=== PATIENT | female | born 1970 | race Two or more races ===

== ENCOUNTER 2017-08-25 22:18 | Emergency (ER) | payer BC, MEDICAID ==
[~2017-08-25] VITALS: Ht 162.6 cm; Wt 88.9 kg
[~2017-08-25 22:18] MED LIST: DICY10CA55 PO; LEVO25TA6 PO; LOR05T PO; METH500T6 PO; PROM25TA5 PO
[2017-08-25 23:05] LABS: Basophils # (auto) 0.1 uL; Basophils % (auto) 0.6 % (0.0-2.0); Eosinophils # (auto) 0.2 uL; Hematocrit 42.6 % (36.0-46.0); Hemoglobin 13.9 g/dL (12.2-16.2); Lymphocytes % (auto) 27.1 % (10.0-50.0); Mean Corpuscular Hemoglobin 28.9 pg (28.0-32.0); Mean Corpuscular Hgb Conc. 32.7 g/dL (32.0-36.0); Mean Corpuscular Volume 88.4 fL (80.0-100.0); Mean Platelet Volume 8.1 fL (6.9-10.8); Monocytes # (auto) 0.9 uL; Monocytes % (auto) 8.1 % (0.0-12.0); Neutrophils # (auto) 6.8 uL; Neutrophils % (auto) 62.2 % (37.0-80.0); Nucleated Red Blood Cells % 0.1 %; Platelet Count (auto) 323 10^3/uL (140-450); Red Cell Distribution Width 13.8 % (11.8-14.3); White Blood Cell 10.9 10^3/uL (4.4-10.8)
[2017-08-25 23:08] LABS: Urine Bilirubin Negative (Negative); Urine Blood Negative /uL (Negative); Urine Color Yellow (Yellow); Urine Glucose Normal (Normal); Urine Ketone Negative (Negative); Urine Mucus FEW (None Seen); Urine Nitrite Negative (Negative); Urine RBC 1 /hpf (0 - 4); Urine Squamous Epithelial Cell FEW /hpf (<5); Urine Urobilinogen Normal (Negative); Urine pH 5.5 (5.0-8.0)
[2017-08-25 23:35] LABS: Albumin 3.8 g/dL (3.4-5.0); Calcium 8.9 mg/dL (8.5-10.1); Potassium 4.4 mmol/L (3.5-5.1)
[2017-08-25 23:37] LABS: Bilirubin, Total 0.1 mg/dL (0.2-1.0); Total Protein 7.7 g/dL (6.4-8.2)
[2017-08-26 01:58] VITALS: BP 126/80
== END 2017-08-26 02:44 | disposition left against medical advice (07) ==
LOC: ER 22:27
DX: R10.9 Unspecified abdominal pain (principal); Z53.21 Procedure and treatment not carried out due to patient leaving prior to being seen by health care provider
CPT/HCPCS: 36415; 74176; 80053; 81001; 81025; 85025

== ENCOUNTER 2018-05-03 12:37 | Emergency (ER) | payer OTHER, MEDICAID ==
[~2018-05-03] VITALS: Ht 162.6 cm; Wt 88.9 kg
[~2018-05-03 12:37] MED LIST changes: -LOR05T PO; +LORA-654 PO
[2018-05-03 13:40] VITALS: BP 137/91
[2018-05-03] MEDS ORDERED: cefTRIAXone SOD 1,000 MG VL IM ONE (14:15)
[2018-05-03] MEDS ORDERED: IBUPROFEN 600 MG TAB PO ONE (14:30)
[2018-05-03] MEDS ORDERED: KETOROLAC TROMETH 60MG/2ML VIAL IM ONE (14:30)
== END 2018-05-03 14:32 | disposition home or self-care (01) ==
LOC: EDBD 12:37 → ER 12:37
DX: N39.0 Urinary tract infection, site not specified (principal); K21.9 Gastro-esophageal reflux disease without esophagitis; E66.01 Morbid (severe) obesity due to excess calories; Z68.33 Body mass index [BMI] 33.0-33.9, adult; Z90.49 Acquired absence of other specified parts of digestive tract; Z90.710 Acquired absence of both cervix and uterus
CPT/HCPCS: 96372; 99284; J0696; J1885

== ENCOUNTER → 2018-09-13 | Outpatient (CLI) | payer MEDICAID, BC ==
[2018-09-13 16:19] LABS: Basophils # (auto) 0 uL; Basophils % (auto) 0.4 % (0.0-2.0); Eosinophils # (auto) 0.1 uL; Eosinophils % (auto) 1.2 % (0.0-7.0); Hemoglobin 15.1 g/dL (12.2-16.2); Lymphocytes # (auto) 1.8 uL; Lymphocytes % (auto) 19.6 % (10.0-50.0); Mean Corpuscular Hemoglobin 30.7 pg (28.0-32.0); Mean Corpuscular Hgb Conc. 34.3 g/dL (32.0-36.0); Mean Corpuscular Volume 89.4 fL (80.0-100.0); Monocytes # (auto) 0.6 uL; Monocytes % (auto) 6.2 % (0.0-12.0); Neutrophils # (auto) 6.8 uL; Neutrophils % (auto) 72.6 % (37.0-80.0); Nucleated Red Blood Cells % 0.1 %; Platelet Count (auto) 348 10^3/uL (140-450); Red Blood Cells 4.92 10^6/uL (4.0-5.20); Red Cell Distribution Width 13.6 % (11.8-14.3); White Blood Cell 9.4 10^3/uL (4.4-10.8)
[2018-09-13 16:50] LABS: Follicle Stimulating Hormone 30.74 IU/L (SEE BELOW); Free T3 2.46 pg/mL (2.3-4.2)
== END | disposition home or self-care (01) ==
LOC: LAB 15:36
PROVIDERS: ATTEND Internal Medicine
DX: E55.9 Vitamin D deficiency, unspecified (principal); E03.9 Hypothyroidism, unspecified
CPT/HCPCS: 36415; 82670; 83001; 84144; 84403; 84481; 85025

== ENCOUNTER 2018-10-17 06:45 | Emergency (ER) | payer MEDICAID ==
[~2018-10-17] VITALS: Ht 165.1 cm; Wt 86.2 kg
[2018-10-17] MEDS: SODIUM CHLORIDE 0.9% 1,000 ML IV ONE (09:13)
[2018-10-17 09:17] LABS: Basophils # (auto) 0 uL; Basophils % (auto) 0.1 % (0.0-2.0); Eosinophils # (auto) 0.1 uL; Eosinophils % (auto) 1.1 % (0.0-7.0); Hematocrit 41.7 % (36.0-46.0); Hemoglobin 13.8 g/dL (12.2-16.2); Lymphocytes # (auto) 0.8 uL; Lymphocytes % (auto) 13.1 % (10.0-50.0); Mean Corpuscular Hemoglobin 29.3 pg (28.0-32.0); Mean Corpuscular Volume 88.7 fL (80.0-100.0); Monocytes # (auto) 0.2 uL; Monocytes % (auto) 3.2 % (0.0-12.0); Neutrophils # (auto) 5.2 uL; Neutrophils % (auto) 82.5 % (37.0-80.0); Platelet Count (auto) 313 10^3/uL (140-450); White Blood Cell 6.3 10^3/uL (4.4-10.8)
[2018-10-17] MEDS: KETOROLAC TROMETH 30 MG/ML 1ML VIAL IV ONE (09:20)
[2018-10-17 09:21] LABS: Urine Bacteria MANY /hpf (None Seen); Urine Blood TRACE /uL (Negative); Urine Mucus FEW (None Seen); Urine Specific Gravity 1.018 (1.001-1.035); Urine WBC 215 /hpf (0 - 5)
[2018-10-17 09:32] LABS: Albumin 3.5 g/dL (3.4-5.0); Amylase 26 U/L (25-115); Anion Gap 7 (5-15); Blood Urea Nitrogen 11 mg/dL (7-18); Calcium 8.7 mg/dL (8.5-10.1); Carbon Dioxide 25 mmol/L (21-32); Chloride 104 mmol/L (98-107); Glucose 76 mg/dL (74-106); Lipase 101 U/L (73-393); Potassium 3.8 mmol/L (3.5-5.1); Sodium 136 mmol/L (136-145)
[2018-10-17 09:39] LABS: Alanine Aminotransferase 29 U/L (13-56); Alkaline Phosphatase 54 U/L (45-117); Aspartate Aminotransferase 20 U/L (15-37); BUN/Creatinine Ratio 13.9; Bilirubin, Total 0.6 mg/dL (0.2-1.0); GFR African American 101 mL/min; GFR Non-African American 83 mL/min; Total Protein 7.2 g/dL (6.4-8.2)
[2018-10-17] MEDS: cefTRIAXone 1GM/50ML D5W 50 ML IV ONE ×2 (11:06→11:29)
[2018-10-17 11:26] VITALS: BP 110/75
== END 2018-10-17 13:14 | disposition home or self-care (01) ==
LOC: ER 06:45 → EDBD 06:45 → ER 13:14
DX: N39.0 Urinary tract infection, site not specified (principal); M54.9 Dorsalgia, unspecified; R07.9 Chest pain, unspecified; M25.559 Pain in unspecified hip; M25.519 Pain in unspecified shoulder; K21.9 Gastro-esophageal reflux disease without esophagitis; G89.4 Chronic pain syndrome; Z79.899 Other long term (current) drug therapy; Z90.49 Acquired absence of other specified parts of digestive tract; Z90.710 Acquired absence of both cervix and uterus; Z87.442 Personal history of urinary calculi; Z87.11 Personal history of peptic ulcer disease
CPT/HCPCS: 36415; 80053; 81001; 82150; 83690; 84484; 85025; 96365; 96375; 99283; J0696; J1885; J7030

== ENCOUNTER 2018-11-11 02:31 | Emergency (ER) | payer MEDICAID ==
[~2018-11-11] VITALS: Ht 162.6 cm; Wt 88.9 kg
[2018-11-11 03:21] LABS: Basophils # (auto) 0 uL; Basophils % (auto) 0.3 % (0.0-2.0); Eosinophils # (auto) 0 uL; Eosinophils % (auto) 0.5 % (0.0-7.0); Hematocrit 39.5 % (36.0-46.0); Lymphocytes # (auto) 1.7 uL; Lymphocytes % (auto) 20.1 % (10.0-50.0); Mean Corpuscular Hemoglobin 29.3 pg (28.0-32.0); Mean Corpuscular Volume 88.8 fL (80.0-100.0); Monocytes # (auto) 0.7 uL; Monocytes % (auto) 7.8 % (0.0-12.0); Neutrophils # (auto) 6.2 uL; Neutrophils % (auto) 71.3 % (37.0-80.0); Platelet Count (auto) 320 10^3/uL (140-450); Red Blood Cells 4.45 10^6/uL (4.0-5.20); White Blood Cell 8.6 10^3/uL (4.4-10.8)
[2018-11-11 03:41] LABS: Albumin 3.4 g/dL (3.4-5.0); BUN/Creatinine Ratio 19.4; Calcium 8.2 mg/dL (8.5-10.1); Potassium 3.9 mmol/L (3.5-5.1)
[2018-11-11 03:43] LABS: Bilirubin, Total 0.2 mg/dL (0.2-1.0)
[2018-11-11 04:14] LABS: Urine Bacteria FEW /hpf (None Seen); Urine Blood Negative /uL (Negative); Urine Mucus FEW (None Seen); Urine Specific Gravity 1.013 (1.001-1.035); Urine WBC 14 /hpf (0 - 5)
[2018-11-11 04:29] LABS: Alcohol, Urine < 3.0 mg/dL (0-5); Amphetamine Screen, Urine NEGATIVE (NEGATIVE); Barbiturate Scree,Urine NEGATIVE (NEGATIVE); Benzodiazephine Screen, Urine NEGATIVE (NEGATIVE); Cannabinoid Screen, Urine NEGATIVE (NEGATIVE); Cocaine Screen, Urine NEGATIVE (NEGATIVE); Opiate Scree,Urine NEGATIVE (NEGATIVE); Phencyclidine Screen, Urine NEGATIVE (NEGATIVE)
[2018-11-11] MEDS ORDERED: KETOROLAC TROMETH 60MG/2ML VIAL IM ONE (07:30)
[2018-11-11 07:38] VITALS: BP 167/108
== END 2018-11-11 08:34 | disposition home or self-care (01) ==
LOC: EDUNIT# 02:31 → EDBD 02:31 → ER 02:31
DX: N39.0 Urinary tract infection, site not specified (principal); M54.9 Dorsalgia, unspecified; G89.29 Other chronic pain; Z90.49 Acquired absence of other specified parts of digestive tract; Z79.899 Other long term (current) drug therapy; Z90.710 Acquired absence of both cervix and uterus
CPT/HCPCS: 36415; 71250; 74176; 80053; 80307; 81001; 83690; 85025; 96372; 99284; J1885

== ENCOUNTER 2020-04-08 19:02 | Emergency (ER) | payer MEDICAID ==
[~2020-04-08] VITALS: Ht 162.6 cm; Wt 86.2 kg
[~2020-04-08 19:02] MED LIST changes: -LORA-654 PO; +LORA0.5T12 PO; +METH500T22 PO; -METH500T6 PO
[2020-04-08] MEDS ORDERED: SODIUM CHLORIDE 0.9% 500 ML IV ONE (19:06)
[2020-04-08] MEDS ORDERED: MORPHINE SULFATE 4 MG/ML SYR/VIAL IV ONE (19:15)
[2020-04-08] MEDS ORDERED: ONDANSETRON HCL 4 MG/2 ML VIAL IV ONE (19:15)
[2020-04-08 19:46] LABS: Basophils # (auto) 0 10 ^3/uL (0-0.2); Basophils % (auto) 0.1 % (0.0-2.0); Eosinophils # (auto) 0.1 10 ^3/uL (0-0.8); Eosinophils % (auto) 1.8 % (0.0-7.0); Hematocrit 41.8 % (36.0-46.0); Lymphocytes # (auto) 1.2 10 ^3/uL (0.4-5.4); Lymphocytes % (auto) 22.3 % (10.0-50.0); Mean Corpuscular Hgb Conc. 33.4 g/dL (32.0-36.0); Monocytes # (auto) 0.5 10 ^3/uL (0-1.3); Monocytes % (auto) 9.4 % (0.0-12.0); Neutrophils # (auto) 3.6 10 ^3/uL (1.6-8.6); Neutrophils % (auto) 66.4 % (37.0-80.0); Nucleated Red Blood Cells % 0.1 %; Platelet Count (auto) 239 10^3/uL (140-450); Red Blood Cells 4.64 10^6/uL (4.0-5.20); Red Cell Distribution Width 13.5 % (11.8-14.3); White Blood Cell 5.5 10^3/uL (4.4-10.8)
[2020-04-08 20:04] LABS: Albumin 3.1 g/dL (3.4-5.0); Calcium 8.2 mg/dL (8.5-10.1); Potassium 3.7 mmol/L (3.5-5.1)
[2020-04-08 20:07] LABS: BUN/Creatinine Ratio 13.4; Bilirubin, Total 0.4 mg/dL (0.2-1.0); Total Protein 6.7 g/dL (6.4-8.2)
[2020-04-08] MEDS ORDERED: KETOROLAC TROMETH 30 MG/ML 1ML VIAL IV ONE (20:15)
[2020-04-08 20:17] LABS: Urine Bacteria MOD /hpf (None Seen); Urine Blood TRACE /uL (Negative); Urine Mucus FEW (None Seen); Urine Specific Gravity 1.012 (1.001-1.035); Urine WBC 136 /hpf (0 - 5)
[2020-04-08 21:00] VITALS: BP 123/74
== END 2020-04-08 21:30 | disposition home or self-care (01) ==
LOC: ER 19:02 → EDBD 19:02 → ER 21:30
DX: R42 Dizziness and giddiness (principal); N39.0 Urinary tract infection, site not specified; R51 Headache; E78.5 Hyperlipidemia, unspecified; Z90.49 Acquired absence of other specified parts of digestive tract; Z90.710 Acquired absence of both cervix and uterus; Z87.11 Personal history of peptic ulcer disease
CPT/HCPCS: 36415; 70450; 80053; 81001; 85025; 93005; 96361; 96374; 96375; 99284; J1885; J2270; J2405; J7030

== ENCOUNTER 2020-04-14 14:45 | Emergency (ER) | payer MEDICAID ==
[~2020-04-14] VITALS: Ht 162.6 cm; Wt 93.9 kg
[2020-04-14 15:05] LABS: Basophils # (auto) 0 10 ^3/uL (0-0.2); Basophils % (auto) 0.2 % (0.0-2.0); Eosinophils # (auto) 0.1 10 ^3/uL (0-0.8); Eosinophils % (auto) 1.7 % (0.0-7.0); Hematocrit 44.5 % (36.0-46.0); Hemoglobin 14.7 g/dL (12.2-16.2); Lymphocytes % (auto) 16.1 % (10.0-50.0); Mean Corpuscular Hemoglobin 29.9 pg (28.0-32.0); Mean Corpuscular Volume 90.7 fL (80.0-100.0); Monocytes # (auto) 0.4 10 ^3/uL (0-1.3); Monocytes % (auto) 7.1 % (0.0-12.0); Neutrophils # (auto) 4.6 10 ^3/uL (1.6-8.6); Neutrophils % (auto) 74.9 % (37.0-80.0); Nucleated Red Blood Cells % 0.1 %; Platelet Count (auto) 301 10^3/uL (140-450); Red Cell Distribution Width 13.7 % (11.8-14.3); White Blood Cell 6.1 10^3/uL (4.4-10.8)
[2020-04-14 15:22] LABS: Albumin 3.6 g/dL (3.4-5.0); BUN/Creatinine Ratio 17.8; Calcium 8.9 mg/dL (8.5-10.1); Potassium 4.2 mmol/L (3.5-5.1)
[2020-04-14 15:24] LABS: Bilirubin, Total 0.4 mg/dL (0.2-1.0); Total Protein 7.4 g/dL (6.4-8.2)
[2020-04-14 16:24] LABS: Urine Bacteria FEW /hpf (None Seen); Urine Blood Negative /uL (Negative); Urine WBC 17 /hpf (0 - 5)
[2020-04-14] MEDS ORDERED: KETOROLAC TROMETH 60MG/2ML VIAL IM ONE (18:15)
[2020-04-14 19:48] VITALS: BP 141/91
== END 2020-04-14 19:52 | disposition home or self-care (01) ==
LOC: ER 14:45 → EDBD 14:45 → EDUNIT# 14:45 → ER 19:52
DX: N39.0 Urinary tract infection, site not specified (principal); E78.5 Hyperlipidemia, unspecified
CPT/HCPCS: 36415; 74176; 80053; 81001; 83690; 85025; 87086; 96372; 99284; J1885

== ENCOUNTER 2020-04-29 21:27 | Emergency (ER) | payer MEDICAID ==
[~2020-04-29] VITALS: Ht 162.6 cm; Wt 93.9 kg
[2020-04-30 00:13] LABS: Urine Bacteria FEW /hpf (None Seen); Urine Blood Negative /uL (Negative); Urine Specific Gravity 1.006 (1.001-1.035); Urine WBC 47 /hpf (0 - 5)
[2020-04-30 00:53] LABS: Basophils # (auto) 0 10 ^3/uL (0-0.2); Basophils % (auto) 0.2 % (0.0-2.0); Eosinophils # (auto) 0.1 10 ^3/uL (0-0.8); Eosinophils % (auto) 1.3 % (0.0-7.0); Hematocrit 45.5 % (36.0-46.0); Hemoglobin 15.2 g/dL (12.2-16.2); Lymphocytes # (auto) 1.5 10 ^3/uL (0.4-5.4); Lymphocytes % (auto) 19.6 % (10.0-50.0); Mean Corpuscular Hemoglobin 30.1 pg (28.0-32.0); Mean Corpuscular Hgb Conc. 33.4 g/dL (32.0-36.0); Monocytes # (auto) 0.6 10 ^3/uL (0-1.3); Monocytes % (auto) 7.4 % (0.0-12.0); Neutrophils # (auto) 5.5 10 ^3/uL (1.6-8.6); Neutrophils % (auto) 71.5 % (37.0-80.0); Platelet Count (auto) 283 10^3/uL (140-450); Red Blood Cells 5.05 10^6/uL (4.0-5.20); Red Cell Distribution Width 13.2 % (11.8-14.3); White Blood Cell 7.7 10^3/uL (4.4-10.8)
[2020-04-30 01:11] LABS: Albumin 3.6 g/dL (3.4-5.0); BUN/Creatinine Ratio 11.4; Calcium 8.9 mg/dL (8.5-10.1); Potassium 4.2 mmol/L (3.5-5.1)
[2020-04-30 01:13] LABS: Bilirubin, Total 0.4 mg/dL (0.2-1.0); Total Protein 7.4 g/dL (6.4-8.2)
[2020-04-30] MEDS ORDERED: methylPREDNISolone SOD SUCC 125 MG/2 ML VL IM ONE (02:45)
[2020-04-30] MEDS ORDERED: methylPREDNISolone SOD SUCC 125 MG/2 ML VL ONE (02:54)
[2020-04-30 03:41] VITALS: BP 124/79
== END 2020-04-30 03:58 | disposition home or self-care (01) ==
LOC: ER 21:27 → EDBD 21:27 → ER 04-30 03:58
DX: G89.4 Chronic pain syndrome (principal); N39.0 Urinary tract infection, site not specified; E78.5 Hyperlipidemia, unspecified; Z90.49 Acquired absence of other specified parts of digestive tract; Z90.710 Acquired absence of both cervix and uterus; Z79.899 Other long term (current) drug therapy; Z88.2 Allergy status to sulfonamides
CPT/HCPCS: 36415; 80053; 81001; 85025; 96372; 99283; J2930

== ENCOUNTER 2023-02-16 20:50 | Emergency (ER) | payer BC, MEDICAID ==
[~2023-02-16] VITALS: Ht 162.6 cm; Wt 86.0 kg
[~2023-02-16 20:50] MED LIST changes: -LORA0.5T12 PO; +LORA0.5T20 PO
[2023-02-16 21:00] VITALS: BP 141/90
[2023-02-16 21:37] LABS: Basophils # (auto) 0 10 ^3/uL (0-0.2); Basophils % (auto) 0.5 % (0.0-2.0); Eosinophils # (auto) 0.1 10 ^3/uL (0-0.8); Eosinophils % (auto) 2.1 % (0.0-7.0); Hematocrit 43.3 % (36.0-46.0); Hemoglobin 14.7 g/dL (12.2-16.2); Lymphocytes # (auto) 1.7 10 ^3/uL (0.4-5.4); Mean Corpuscular Hemoglobin 30.3 pg (28.0-32.0); Mean Corpuscular Hgb Conc. 33.9 g/dL (32.0-36.0); Mean Corpuscular Volume 89.5 fL (80.0-100.0); Monocytes # (auto) 0.6 10 ^3/uL (0-1.3); Monocytes % (auto) 10.3 % (0.0-12.0); Neutrophils % (auto) 56.1 % (37.0-80.0); Nucleated Red Blood Cells % 0.8 %; Red Blood Cells 4.84 10^6/uL (4.0-5.20); Red Cell Distribution Width 13.4 % (11.8-14.3); White Blood Cell 5.4 10^3/uL (4.4-10.8)
[2023-02-16 21:58] LABS: Urine Bacteria FEW /hpf (None Seen); Urine Blood Negative /uL (Negative); Urine Specific Gravity 1.012 (1.001-1.035); Urine WBC 3 /hpf (0 - 5)
[2023-02-16 22:00] LABS: Albumin 3.8 g/dL (3.4-5.0); BUN/Creatinine Ratio 17.1 (10.0-20.0); Calcium 9.3 mg/dL (8.5-10.1)
[2023-02-16 22:03] LABS: Bilirubin, Total 0.3 mg/dL (0.2-1.0); Total Protein 7.2 g/dL (6.4-8.2)
[2023-02-16 22:21] LABS: INR 0.92 (0.9-1.15); Partial Thromboplastin Time 27.1 sec (24.6-33.4)
== END 2023-02-16 21:59 | disposition left against medical advice (07) ==
LOC: ER 20:50 → EDBD 20:50 → ER 21:56
DX: R07.89 Other chest pain (principal); H53.8 Other visual disturbances; Z53.21 Procedure and treatment not carried out due to patient leaving prior to being seen by health care provider
CPT/HCPCS: 36415; 71045; 80053; 81001; 83735; 83880; 84484; 85025; 85610; 85730; 93005

== ENCOUNTER 2024-08-03 23:24 | Emergency (ER) | payer BC, MEDICAID ==
[~2024-08-03] VITALS: Ht 167.6 cm; Wt 85.0 kg
[~2024-08-03 23:24] MED LIST changes: +LORA-1121 PO; -LORA0.5T20 PO; +METH-1181 PO; -METH500T22 PO; +PROM25TA10 PO; -PROM25TA5 PO
[2024-08-03 23:30] VITALS: BP 145/101; PULSE 86; RESP 18; O2SAT 98
[2024-08-04] MEDS ORDERED: SODIUM CHLORIDE 0.9% 1,000 ML IV ONE (03:30)
[2024-08-04] MEDS ORDERED: MORPHINE SULFATE 4 MG/ML SYR/VIAL IV ONE (03:30)
[2024-08-04] MEDS ORDERED: ONDANSETRON HCL 4 MG/2 ML VIAL IV ONE (03:30)
== END 2024-08-04 05:33 | disposition left against medical advice (07) ==
LOC: EDUNIT# 23:24 → EDBD 23:24 → ER 23:24
DX: R10.9 Unspecified abdominal pain (principal); Z53.21 Procedure and treatment not carried out due to patient leaving prior to being seen by health care provider
CPT/HCPCS: 93005; J2405

== ENCOUNTER 2025-06-03 14:49 | Emergency (ER) | payer BC ==
[~2025-06-03] VITALS: Ht 167.6 cm; Wt 86.0 kg
[2025-06-03] MEDS ORDERED: PRED10TA PO (15:12)
--- NOTE | 2025-06-03 15:13 | ED.PDOC ---
History of Present Illness HPI Comments 54-year-old female brought by paramedics because of back pain. Patient states that she has been having back pain for many years. Back pain is mostly in the low back with no radiation of the pain. Ambulation does not worsen the pain. Denies any other symptoms. Chief Complaint: Back Pain Time Seen by MD: 14:51 Primary Care Provider: Dr Singh Reviewed Notes: Nurses Notes, Medications, Allergies Allergies: Coded Allergies: Sulfamethoxazole w/Trimethoprim (Verified Allergy, Unknown, 11/11/18) Home Meds Active Scripts Prednisone (Prednisone) 10 Mg Tab, 10 MG PO DAILY for 7 Days, #7 MG Prov:MEJIA TEIXEIRA MD 06/03/25 Reported Medications Levothyroxine Sodium (Levothyroxine Sodium) 25 Mcg Tab, 25 MCG PO QAM, MCG 02/07/16 Lorazepam (ATIVAN TABLET) 0.5 Mg Tb, 1 TAB PO PRN, #90 TAB 12/16/15 Dicyclomine Hcl (Bentyl) 10 Mg Cap, 1 CAP PO TID, #90 CAP 1 Refill 12/16/15 Promethazine Hcl (Promethazine Hcl) 25 Mg Tab, 12.5 MG PO BID, TAB 12/16/15 Methocarbamol (Methocarbamol) 500 Mg Tab, 500 MG PO Q8HP PRN for prn for 30 Days, MG 12/16/15 Information Source: Patient, Emergency Med Personnel Mode of Arrival: EMS Severity: Moderate Timing: Months Duration: Since onset Past Medical History PAST MEDICAL HISTORY: Anxiety, High Lipids, PUD, UTI'S Surgical History: Cholecystectomy, Hysterectomy [employer] History: No Pertinent [employer] WORKER History Family History Family History: Reviewed,noncontributory to illness Social History Smoker: Non-Smoker Alcohol: Denies ETOH Use Drugs: Denies Drug Use Lives In: Home Constitutional: denies: chills, diaphoresis, fatigue, fever, malaise, sweats, weakness, others EENTM: denies: blurred vision, double vision, ear bleeding, ear discharge, ear drainage, ear pain, ear ringing, eye pain, eye redness, hearing loss, mouth pain, mouth swelling, nasal discharge, nose bleeding, nose congestion, nose pain, photophobia, tearing, throat pain, throat swelling, voice changes, others Respiratory: denies: cough, hemoptysis, orthopnea, SOB at rest, shortness of breath, SOB with excertion, stridor, wheezing, others Cardiovascular: denies: chest pain, dizzy spells, diaphoresis, Dyspnea on exertion, edema, irregular heart beat, left arm pain, lightheadedness, palpitations, PND, syncope, others Gastrointestinal: denies: abdomen distended, abdominal pain, blood streaked bowels, constipated, diarrhea, dysphagia, difficulty swallowing, hematemesis, melena, nausea, poor appetite, poor fluid intake, rectal bleeding, rectal pain, vomiting, others Genitourinary: denies: abnormal vagina bleeding, burning, dyspareunia, dysuria, flank pain, frequency, hematuria, incontinence, pain, , vagina discharge, urgency, others Neurological: denies: dizziness, fainting, headache, left sided numbness, left sided weakness, numbness, paresthesia, pre-existing deficit, right sided numbness, right sided weakness, seizure, speech problems, tingling, tremors, weakness, others Musculoskeletal: reports: back pain; denies: gout, joint pain, joint swelling, muscle pain, muscle stiffness, neck pain, others Integumetry: denies: bruises, change in color, change in hair/nails, dryness, laceration, lesions, lumps, rash, wounds, others Allergic/Immunocompromised: denies: Difficulty Healing, Frequent Infections, Hives, Itching, others Hematologic/Lymphatic: denies: anemia, blood clots, easy bleeding, easy bruising, swollen glands, others Endocrine: denies: excessive hunger, excessive sweating, excessive thirst, excessive urination, flushing, intolerance to cold, intolerance to heat, unexplained weight gain, unexplained weight loss, others Psychiatric: denies: anxiety, bipolar disorder, depression, hopeless, panic disorder, schizophrenia, sleepless, suicidal, others Physical Exam General Appearance: Moderate Distress HEENT: Normal ENT Inspection, Pharynx Normal, TMs Normal Neck: Full Range of Motion, Non-Tender, Normal, Normal Inspection Respiratory: Chest Non-Tender, Lungs Clear, No Accessory Muscle Use, No Respiratory Distress, Normal Breath Sounds Cardiovascular: No Edema, No JVD, No Murmur, No Gallop, Normal Peripheral Pulses, Regular Rate/Rhythm Breast Exam: Deferred Gastrointestinal: No Organomegaly, Non Tender, No Pulsatile Mass, Normal Bowel Sounds, Soft Genitalia: Deferred Pelvic: Deferred Rectal: Deferred Extremities: No calf tenderness, Normal capillary refill, Normal inspection, Normal range of motion, Non-tender, No pedal edema Musculoskeletal : Apperance: Normal Neurologic: Alert, 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 Was a procedure done?: No Differential Dx Considerations may include: Degenerative disc disease Musculoskeletal pain X-Ray, Labs, Meds, VS Vital Signs Date Time Temp Pulse Resp B/P (MAP) Pulse Ox O2 Delivery O2 Flow Rate FiO2 06/03/25 15:50 Room Air* 0 21 06/03/25 15:49 97.9 78 18 123/87 (99) 97 97.9 06/03/25 15:05 98.7 78 20 139/98 (112) 98 98.7 Lab Test 06/03/25 16:12 Range/Units Urine Color Colorless Yellow Urine Clarity Turbid H Clear Urine pH 6.5 5.0-9.0 Urine Specific [place] 1.022 1.001-1.035 Urine Protein Negative Negative Urine Ketones Negative Negative Urine Blood Negative Negative /uL Urine Nitrite 1+ H Negative Urine Bilirubin Negative Negative Urine Urobilinogen Normal Negative mg/dL Urine Leukocyte Esterase Negative Negative /uL Urine RBC <1 0 - 4 /hpf Urine Microscopic WBC 3 0-5 /HPF Urine Squamous Epithelial Cells Few <5 /hpf Urine Bacteria Few H None Seen /hpf Urine Glucose Normal Normal mg/dL Current Medications Medications (Trade) Dose Ordered Sig/Margarita Route Start Time Stop Time Status Last Admin Oxycodone/ Acetaminophen (Percocet 5/ 325MG Tablet) 1 tab ONCE ONCE PO 06/03/25 16:00 06/03/25 16:01 DC 06/03/25 16:18 Patient alert. Complaining of back pain. Vitals stable. Answering questions. Ambulating. Chronic condition. X-ray does not show any acute process. Was given Percocet. UA shows UTI. Was given prescription of Macrobid prednisone. Explained to the patient. Was told to follow up with her primary care physician. Was told to come back if there is any problem. Time of 1ST Reevaluation: 15:11 Reevaluation 1ST: Unchanged Patient Education/Counseling: Diagnosis, Treatment, Prognosis, Need For Follow Up Family Education/Counseling: No Family Present SEPSIS Sepsis Screen Date sepsis recognized/suspect: Jun 03, 2025 Time Sepsis recognized/suspect: 1456 Recent Procedure: No On Antibiotic Therapy: No Respiratory Rate >20: No Heart Rate >90: No Temp<36 C (96.8 F) or >38.3 C: No SBP <90 or MAP <65 mmHG: No New Acute Mental Status Change: No Is the patient on CPAP, BIPAP,: No Physician Orders Lumbar Spine 4+ View (06/03/25 15:08) Vital Signs Date Time Temp Pulse Resp B/P (MAP) Pulse Ox O2 Delivery O2 Flow Rate FiO2 06/03/25 15:50 Room Air* 0 21 06/03/25 15:49 97.9 78 18 123/87 (99) 97 97.9 06/03/25 15:05 98.7 78 20 139/98 (112) 98 98.7 Medications Medications Dose Ordered Sig/Margarita Route Start Time Stop Time Status Last Admin Dose Admin Oxycodone/ Acetaminophen 1 tab ONCE ONCE PO 06/03/25 16:00 06/03/25 16:01 DC 06/03/25 16:18 Departure 1 Departure Time of Disposition: 15:12 Impression: Primary Impression: Musculoskeletal pain Additional Impressions: Lumbar sprain Qualified Codes: S33.5XXA - Sprain of ligaments of lumbar spine, initial encounter UTI (urinary tract infection) Qualified Codes: N30.00 - Acute cystitis without hematuria Disposition: 01 HOME / SELF CARE / HOMELESS Condition: Good e-Prescriptions Nitrofurantoin Monohydrate Mac (Macrobid) 100 Mg Cap 100 MG PO BID for 7 Days, #14 CAP Prov: MEJIA TEIXEIRA MD 06/03/25 Prednisone (Prednisone) 10 Mg Tab 10 MG PO DAILY for 7 Days, #7 MG Prov: MEJIA TEIXEIRA MD 06/03/25 Discharged With: Self Critical Care Note Critical Care Time?: No Stability Stability form required: No Heart Score Heart Score: Heart Score Response (Comments) Value History N/A 0 EKG N/A 0 Age N/A 0 Risk Factors N/A 0 Troponin N/A 0 Total 0 MEJIA TEIXEIRA MD Jun 03, 2025 15:13
[2025-06-03] MEDS: HYDROcodone-ACET 10/325MG TAB PO ONE (15:15)
--- NOTE | 2025-06-03 16:09 | DVH ---
EXAM: XY LUMBAR SPINE 4+ VIEW INDICATION: degen COMPARISON: None TECHNIQUE: 4 views of the lumbar spine were obtained. Findings: There is no evidence of an acute fracture or spondylolysis. Grade 1 anterolisthesis of L4 on L5. The vertebral body heights and disc spaces are well-maintained. No blastic or lytic lesions are appreciated. No radiopaque foreign bodies. No superficial soft tissue abnormalities. Impression: 1. No acute osseous abnormality. 2. Grade 1 anterolisthesis of L4 on L5.
[2025-06-03] MEDS: OXYCODONE W/ ACETAMINOPHEN 5/325MG TABLET PO ONE (16:18)
[2025-06-03 16:24] LABS: Urine Protein, UAD Negative (Negative)
[2025-06-03] MEDS ORDERED: NITR-87 PO (17:08)
[2025-06-03 17:19] VITALS: BP 130/84; PULSE 79; RESP 16; TEMP 97.7; O2SAT 96
== END 2025-06-03 17:20 | disposition home or self-care (01) ==
LOC: EDBD 14:49 → ER 14:53
DX: S33.5XXA Sprain of ligaments of lumbar spine, initial encounter (principal); N39.0 Urinary tract infection, site not specified; F41.9 Anxiety disorder, unspecified; E78.5 Hyperlipidemia, unspecified; Z90.710 Acquired absence of both cervix and uterus; Z90.49 Acquired absence of other specified parts of digestive tract; Z79.52 Long term (current) use of systemic steroids; Z79.899 Other long term (current) drug therapy; Z88.2 Allergy status to sulfonamides; X58.XXXA Exposure to other specified factors, initial encounter; Y93.89 Activity, other specified; Y92.89 Other specified places as the place of occurrence of the external cause; Y99.8 Other external cause status
CPT/HCPCS: 72110; 81001